=== PATIENT | female | born 1990 | race Caucasian/White ===

== ENCOUNTER 2025-04-05 23:28 | Emergency (ER) | payer OTHER ==
[2025-04-06] MEDS ORDERED: Dexamethasone 4 MG TAB ONE (00:38)
[2025-04-06] MEDS ORDERED: Clindamycin 150 MG CAP ONE (00:38)
[2025-04-06] MEDS ORDERED: HYDROcodone/Acetaminophen 7.5/325 mg Tablet ONE (00:39)
== END 2025-04-06 01:00 | disposition home or self-care (01) ==
LOC: ERS 23:28
DX: K04.7 Periapical abscess without sinus (principal); K02.9 Dental caries, unspecified
CPT/HCPCS: 99282; J8540; Q0162